=== PATIENT | female | born 1975 | race Caucasian/White ===

== ENCOUNTER 2016-05-30 10:55 | Emergency (ER) | payer OTHER ==
[2016-05-30 11:01] VITALS: BMI 43.9
[2016-05-30 11:02] VITALS: BP 115/69; PULSE 76; RESP 18; TEMP 97.5; O2SAT 99
--- NOTE | 2016-05-30 11:25 | C.PDOC ---
History Of Present Illness 40 yr old female with PMHx of herniated disc, presents to the ER for new onset of right mid upper back pain which started yesterday while sweeping. Patient states she was in a bent over/twisted position when she felt the pain. Patient states the pain is localized and constant, worse with flexion. Patient reports taking Tylenol but with limited relief. Patient states the pain is different from her herniated disc pain which is in the lower back and this is mid right upper back. Patient denies nausea, vomiting, abdominal pain, diarrhea, dysuria, hematuria, incontinence, weakness or numbness. Time Seen by Provider: 05/30/16 11:12 Chief Complaint (Nursing): Back Pain History Per: Patient History/Exam Limitations: no limitations Onset/Duration Of Symptoms: Sudden Onset (New onset, yesterday. ) Associated Symptoms: None Exacerbating Factor(s): Movement Recent travel outside of the [place]: No Past Medical History Reviewed: Historical Data, Nursing Documentation, Vital Signs Vital Signs: Last Vital Signs Temp 97.5 F L 05/30/16 11:01 Pulse 76 05/30/16 11:01 Resp 18 05/30/16 11:01 BP 115/69 05/30/16 11:01 Pulse Ox 99 05/30/16 11:27 - Medical History PMH: Asthma, Pneumonia Family History: States: No Known Family Hx - Social History Hx Alcohol Use: No Hx Substance Use: No - Immunization History Hx Influenza Vaccination: No Review Of Systems Except As Marked, All Systems Reviewed And Found Negative. Gastrointestinal: Negative for: Nausea, Vomiting, Abdominal Pain, Diarrhea Genitourinary: Negative for: Dysuria, Incontinence, Hematuria Musculoskeletal: Positive for: Back Pain (Right mid, upper back ) Neurological: Negative for: Weakness, Numbness Physical Exam - Physical Exam Appears: Well, Non-toxic, In Acute Distress (Mild) Skin: Warm, Dry, No Rash Head: Atraumatic, Normacephalic Oral Mucosa: Moist Neck: Normal, Normal ROM, Supple Chest: Symmetrical, No Tenderness Cardiovascular: Rhythm Regular, No Murmur Back: Muscle Spasm (With local tenderness, right mid back. ), Other ( Reproducible pain. Limited flexion due to pain. ) Extremity: Normal ROM, No Swelling Neurological/Psych: Oriented x3, Normal Speech, Normal Motor Gait: Steady ED Course And Treatment O2 Sat by Pulse Oximetry: 99 Medical Decision Making Medical Decision Making: PLAN: * Toradol IM NOTE: Patient is in mild distress due to the pain. Referred to use NSAIDS for the pain. Disposition Counseled Patient/Family Regarding: Diagnosis, Need For Followup, Rx Given - Disposition Referrals: [facility] [Outside] [facility] [Other] Disposition: HOME/ ROUTINE Disposition Time: 11:25 Condition: IMPROVED Prescriptions: Cyclobenzaprine [Flexeril] 10 mg PO TID #15 tab Naproxen 500 mg PO BID #30 tab Instructions: Muscle Spasm (ED) Forms: Work Excuse - Clinical Impression Clinical Impression: Back strain - Scribe Statement The provider has reviewed the documentation as recorded by the Danyelleibchichi Maloney Provider Attestation: All medical record entries made by the Danyelleibchichi were at my direction and personally dictated by me. I have reviewed the chart and agree that the record accurately reflects my personal performance of the history, physical exam, medical decision making, and the department course for this patient. I have also personally directed, reviewed, and agree with the discharge instructions and disposition.
== END 2016-05-30 11:45 | disposition home or self-care (01) ==
LOC: C.ER 10:55
DX: S29.012A Strain of muscle and tendon of back wall of thorax, initial encounter (principal); X50.3XXA Overexertion from repetitive movements, initial encounter; Y93.E9 Activity, other interior property and clothing maintenance; Y92.009 Unspecified place in unspecified non-institutional (private) residence as the place of occurrence of the external cause
CPT/HCPCS: 96372; 99283; J1885